=== PATIENT | female | born 1945 | race Caucasian/White ===

== ENCOUNTER 2016-12-30 08:10 | Day surgery (SDC) | payer MEDICARE, BC ==
[2016-12-29 20:54] LABS: HEMATOCRIT 46.2 % (36.0-48.0); HEMOGLOBIN 15.2 g/dL (12.0-16.0)
[2016-12-29 21:15] LABS: CHLORIDE, SERUM 103 MMOL/L (96-112); CO2 (CARBON DIOXIDE) 31 MMOL/L (24-34); CREATININE 0.91 MG/DL (0.55-1.02); GFR AFRICAN AMERICAN 74 ML/MIN (>=60); GFR NON AFRICAN AMERICAN 63 ML/MIN (>=60); GLUCOSE, SERUM 116 MG/DL (60-99); POTASSIUM, SERUM 4.1 MMOL/L (3.5-5.3); SODIUM, SERUM 141 MMOL/L (135-148)
[2016-12-29 21:20] LABS: BUN (BLOOD UREA NITROGEN) 19 MG/DL (6-23); CALCIUM, SERUM 9.5 MG/DL (8.5-10.4)
--- NOTE | ~2016-12-30 | OP ---
Record Of Operation [facility] [address] [place]. [address] NAME: MIKE VIDES : 45 STATUS : [facility]#: [id number] AGE: 71 ADM/REG DATE : 12/30/16 MR#: [id number] REPORT SERV DATE: 12/30/16 DICTATED BY: NEHEMIAS ISLAS DATE: 12/30/16 REPORT STATUS : Draft TRANSCRIBED BY: MODL DATE: 12/30/16 DATE OF PROCEDURE: 12/30/2016 PREOPERATIVE DIAGNOSIS: Left-sided L3-4, L4-5, L5-S1 disk herniation, foraminal stenosis, lumbar radiculopathy. POSTOPERATIVE DIAGNOSIS: Left-sided L3-4, L4-5, L5-S1 disk herniation, foraminal stenosis, lumbar radiculopathy. PROCEDURE: Left-sided L3-4, L4-5, L5-S1 microdiskectomy, use of operative microscope, minimal access spine technology, intraoperative O-arm CT scan with computer navigation with decompression of the left L3 through S1 nerve roots. SURGEON: Nehemias Islas DO. ANESTHESIA: General. ESTIMATED BLOOD LOSS: 25 mL. COMPLICATIONS: None. INDICATIONS: The patient is a 71-year-old, with intractable left sided pain, failed conservative treatment. After discussion of the risks and benefits, elected to proceed with surgery. PROCEDURE IN DETAIL: I identified the patient in the holding area. Consent was obtained. Went to the operating room. Underwent general anesthesia with endotracheal intubation. Prepped and draped in the usual sterile fashion. Operative safety pause was performed, then we proceeded with surgery. The O-arm registration frame was placed in the iliac crest and the arm was brought in for intraoperative CT scan. Computer registration materials were verified and then under computer guidance, a left longitudinal incision was made L3 through S1. Incision was taken down through the fascial layer. Tube dilators were used to minimally invasively dissect down to the left L3-4 interspace. Operative microscope was brought in. A fer was used to perform a laminotomy and partial facetectomy. Madelyn performed a foraminotomy. Nerve root was gently retracted and a knife was used to perform an annulotomy. Free disk material removed with the pituitary. The L3 and L4 nerve roots were free of compression. This was repeated again at the L4-5 and L5-S1 levels. Irrigation performed. Hemostasis achieved. A 40 mg Depo-Medrol injected over the nerve roots. Layered closure performed. Sterile dressings applied. The patient was awoken and extubated and taken to the recovery room in stable condition. OPERATIVE FINDINGS: Left L3-S1 disc herniation and severe stenosis with nerve compression. JCE/ASPENL Record Of Operation [address] [address] NAME: MIKE VIDES : 45 STATUS : [facility] [place] PAT#: [id number] AGE: 71 ADM/REG DATE : 12/30/16 MR#: [id number] REPORT SERV DATE: 12/30/16 DICTATED BY: NEHEMIAS ISLAS DATE: 12/30/16 REPORT STATUS : Draft TRANSCRIBED BY: BECKI DATE: 12/30/16 Nehemias Islas DO / [id number] CC: DO Kiran Blevins Jr., M.D.
[~2016-12-30 08:10] MED LIST: AMBIEN CR12.5 MG PO; AVALIDE1 TA1 PO; METHOC750B PO; MOBIC15 MG PO; NORV5 PO; ULTRAM50 PO
== END 2016-12-30 18:23 | disposition home or self-care (01) ==
LOC: SDC 08:10
PROVIDERS: Orthopaedic Surgery
PROC: 0SB40ZZ Excision of Lumbosacral Disc, Open Approach (ICD-10-PCS; principal; 2016-12-30 10:15)
DX: M51.17 Intervertebral disc disorders with radiculopathy, lumbosacral region (principal); M51.16 Intervertebral disc disorders with radiculopathy, lumbar region; M99.83 Other biomechanical lesions of lumbar region; I10 Essential (primary) hypertension; Z88.5 Allergy status to narcotic agent; Z88.2 Allergy status to sulfonamides; Z79.899 Other long term (current) drug therapy; Z90.710 Acquired absence of both cervix and uterus; Z98.890 Other specified postprocedural states
CPT/HCPCS: 36415; 80048; 85014; 85018; 88304; 88311; A9270-GY; J0690; J1030; J1170; J2250; J2370; J2405; J2710; J3010; J3370